=== PATIENT | female | born 1970 | race Caucasian/White ===

== ENCOUNTER 2022-12-02 05:29 | Outpatient (CLI) | payer BC ==
[~2022-12-02] VITALS: Ht 170.1 cm; Wt 77.3 kg
[2022-12-05] MEDS ORDERED: SPIR50TA4 PO (09:10)
[2022-12-09] MEDS ORDERED: ACHD5005 PO (14:34)
[2022-12-09] MEDS ORDERED: CEPH500C PO (14:34)
[2022-12-09] MEDS ORDERED: ONDA4TAB11 SL (14:34)
== END 2022-12-05 10:06 | disposition home or self-care (01) ==
LOC: PREOP 05:29
PROVIDERS: ATTEND Podiatrist Foot & Ankle Surgery
DX: Z01.818 Encounter for other preprocedural examination (principal)